=== PATIENT | female | born 1965 | race Caucasian/White ===

== ENCOUNTER 2019-11-06 12:24 | Emergency (ER) | payer SELFPAY ==
[~2019-11-06] VITALS: Ht 157.5 cm; Wt 98.2 kg
[~2019-11-06 12:24] MED LIST: ADIPEX-P37.5 MG PO; LORTAB 5/500 501 TAB PO; NO HOME MEDICATIONS; NORCO 325 MG-51 TAB PO; TOPAMAX 25MG25 M1 PO; ZITHROMAX Z PA250 MG PO
[2019-11-06 12:51] VITALS: BP 189/90; TEMP 98.4
[2019-11-06 14:08] LABS: BASO % 0.4 % (0.0-2.0); EOS # 0.2 (0.0-0.7); EOS % 2.7 % (0-4.0); GRAN # 4.6 (1.4-6.5); GRAN % 58.3 % (42.2-75.2); HEMATOCRIT 41.8 % (37.0-47.0); HEMOGLOBIN 14.2 g/dl (12.5-16.0); LYMPH # 2.6 (1.2-3.4); LYMPH % 32.7 % (20.0-51.0); MEAN CELL VOLUME 87 fl (80.0-100.0); MEAN CORPUSCULAR HEMOGLOBIN 30 pg (27.0-31.0); MEAN CORPUSCULAR HGB CONC 34 g/dl (33.0-37.0); MEAN PLATELET VOLUME 10.2 fl (7.4-10.4); MONO # 0.4 (0.1-0.6); MONO % 5.6 % (1.7-9.3); PLATELET COUNT 315 K/mm3 (130-400); RED BLOOD COUNT 4.79 M/mm3 (4.10-5.30); REDCELL DISTRIBUTION WIDTH-CV 12.6 % (11.5-14.5)
[2019-11-06 14:19] LABS: BILIRUBIN,TOTAL 0.4 mg/dL (0.0-1.0); CREATININE, serum 0.54 (0.52-1.25); POTASSIUM 3.8 mmol/L (3.4-5.0); TOTAL PROTEIN 7.1 gm/dL (6.4-8.2)
[2019-11-06 14:29] LABS: C-REACTIVE PROTEIN 0.5 mg/dL (0.0-0.9)
[2019-11-06] MEDS ORDERED: AMOXICILLIN 50500 MG PO (14:47)
[2019-11-06 15:15] VITALS: PULSE 59
== END 2019-11-06 15:17 | disposition home or self-care (01) ==
LOC: COL.ER 12:24
PROVIDERS: Physician Assistant
DX: R51 Headache (principal); Z90.89 Acquired absence of other organs; Z90.710 Acquired absence of both cervix and uterus
CPT/HCPCS: J1200; J1885; J7030

== ENCOUNTER 2021-03-10 12:34 | Emergency (ER) | payer SELFPAY ==
[~2021-03-10] VITALS: Ht 157.5 cm; Wt 114.1 kg
[~2021-03-10 12:34] MED LIST changes: +AMOXICILLIN 50500 MG PO
[2021-03-10 12:44] VITALS: TEMP 98.4
[2021-03-10 13:15] LABS: BASO # 0.1 (0.0-0.2); BASO % 0.7 % (0.0-2.0); EOS # 0.3 (0.0-0.7); EOS % 3.7 % (0-4.0); GRAN # 3.5 (1.4-6.5); GRAN % 51.5 % (42.2-75.2); HEMATOCRIT 42.2 % (37.0-47.0); HEMOGLOBIN 14.4 g/dl (12.5-16.0); LYMPH # 2.2 (1.2-3.4); LYMPH % 32.7 % (20.0-51.0); MEAN CELL VOLUME 85 fl (80.0-100.0); MEAN CORPUSCULAR HEMOGLOBIN 29 pg (27.0-31.0); MEAN CORPUSCULAR HGB CONC 34 g/dl (33.0-37.0); MEAN PLATELET VOLUME 10.4 fl (7.4-10.4); MONO # 0.8 (0.1-0.6); MONO % 11.1 % (1.7-9.3); PLATELET COUNT 270 K/mm3 (130-400); RED BLOOD COUNT 4.97 M/mm3 (4.10-5.30); REDCELL DISTRIBUTION WIDTH-CV 14.9 % (11.5-14.5)
[2021-03-10 13:20] LABS: ALANINE AMINOTRANSFERASE 54 U/L (4-34); ALBUMIN 3.9 gm/dL (3.5-5.0); ALKALINE PHOSPHATASE 103 U/L (50-136); ANION GAP 7 mmol/L (7-16); AST,SGOT 68 U/L (15-37); BILIRUBIN,TOTAL 0.7 mg/dL (0.0-1.0); BLOOD UREA NITROGEN 7 mg/dL (7-17); CALCIUM 8.9 mg/dL (8.4-10.2); CARBON DIOXIDE 26 mmol/L (22-30); CHLORIDE 105 mmol/L (98-107); CREATININE, serum 0.45 (0.52-1.25); GLUCOSE 106 mg/dL (74-106); LIPASE 50 U/L (23-300); POTASSIUM 3.6 mmol/L (3.4-5.0); SODIUM 138 mmol/L (137-145); TOTAL PROTEIN 7.1 gm/dL (6.4-8.2)
[2021-03-10 13:32] LABS: TROPONIN-I < 0.012 ng/mL (0.000-0.035)
[2021-03-10 14:06] LABS: INR 1.1 (0.8-3.0); PROTHROMBIN TIME 11.7 SECONDS (9.7-12.8)
[2021-03-10 14:34] LABS: D-DIMER < 200.00 ng/mLDDu (200-230)
[2021-03-10] MEDS ORDERED: PROVENTIL0.09 MG/A1 IH (14:49)
[2021-03-10] MEDS ORDERED: CLARITIN 1010 MG/TAB PO (14:49)
[2021-03-10] MEDS ORDERED: TESSALON P100 MG/CAP PO (14:49)
[2021-03-10 15:31] VITALS: BP 158/68; PULSE 68
== END 2021-03-10 15:34 | disposition home or self-care (01) ==
LOC: COL.ER 12:34
PROVIDERS: Emergency Medicine
DX: R07.81 Pleurodynia (principal); R05 Cough; R51.9 Headache, unspecified; I10 Essential (primary) hypertension; Z20.822 Contact with and (suspected) exposure to COVID-19
CPT/HCPCS: J7030

== ENCOUNTER 2024-09-18 20:44 | Emergency (ER) | payer SELFPAY ==
[~2024-09-18] VITALS: Ht 157.5 cm; Wt 110.5 kg
[~2024-09-18 20:44] MED LIST changes: +CLARITIN 1010 MG/TAB PO; +MEDROL 4MG DOSPA4 MG PO; +PROVENTIL0.09 MG/A1 IH; +TESSALON P100 MG/CAP PO
[2024-09-18 20:46] VITALS: TEMP 99.1
[2024-09-18 21:21] LABS: COLLECTION METHOD CLEAN CATCH
[2024-09-18] MEDS ORDERED: Ondansetron 4 MG/2 ML VIAL IV ONE (21:30)
[2024-09-18] MEDS ORDERED: Ketorolac 30 MG/ML VIAL IV ONE (21:30)
[2024-09-18] MEDS ORDERED: NS 1,000 ML IV ONE (21:30)
[2024-09-18 21:31] LABS: URINE APPEARANCE CLOUDY (CLEAR/HAZY); URINE BLOOD 2+ (NEGATIVE); URINE COLOR YELLOW (YELLOW); URINE GLUCOSE NEGATIVE (NEGATIVE); URINE KETONE NEGATIVE (NEGATIVE); URINE NITRATE POSITIVE (NEGATIVE); URINE PROTEIN(semi-quant) 2+ (NEGATIVE)
[2024-09-18] MEDS ORDERED: cefTRIAXone 1 G in Water For Injection,Sterile 10 ML IV ONE (21:45)
[2024-09-18 21:46] LABS: BASO # 0.1 K/mm3 (0.0-0.2); BASO % 0.5 % (0.0-2.0); EOS # 0.4 K/mm3 (0.0-0.7); EOS % 2.7 % (0.0-4.0); GRAN % 69.3 % (42.2-75.2); HEMATOCRIT 44.8 % (37.0-47.0); HEMOGLOBIN 15.5 g/dl (12.5-16.0); LYMPH # 2.8 K/mm3 (1.2-3.4); LYMPH % 21.6 % (20.0-51.0); MEAN CELL VOLUME 87 fl (80.0-100.0); MEAN CORPUSCULAR HEMOGLOBIN 30 pg (27-31); MEAN CORPUSCULAR HGB CONC 35 g/dl (33.0-37.0); MEAN PLATELET VOLUME 10.1 fl (7.4-10.4); MONO # 0.7 K/mm3 (0.1-0.6); MONO % 5.6 % (1.7-9.3); PLATELET COUNT 330 K/mm3 (130-400); RED BLOOD COUNT 5.16 M/mm3 (4.10-5.30); REDCELL DISTRIBUTION WIDTH-CV 12.7 % (11.5-14.5)
[2024-09-18 21:57] LABS: ALBUMIN 3.5 g/dL (3.5-5.0); BILIRUBIN,TOTAL 0.3 mg/dL (0.2-1.2); CALCIUM 9.4 mg/dL (8.4-10.2); CREATININE, serum 0.88 mg/dL (0.57-1.11); POTASSIUM 3.9 mEq/L (3.5-4.5); TOTAL PROTEIN 7.3 g/dl (6.2-8.1)
[2024-09-18] MEDS ORDERED: BACTRIM DS 8001 TAB PO (22:23)
[2024-09-18 22:36] VITALS: BP 119/69; PULSE 76
== END 2024-09-18 22:40 | disposition home or self-care (01) ==
LOC: COL.ER 20:44
PROVIDERS: Physician Assistant
DX: N39.0 Urinary tract infection, site not specified (principal); Z90.711 Acquired absence of uterus with remaining cervical stump
CPT/HCPCS: J0696; J1885; J2405; J7030